=== PATIENT | female | born 1940 ===

== ENCOUNTER 2017-04-21 06:23 | Day surgery (SDC) | payer OTHER ==
[2017-04-21 06:55] VITALS: BMI 25.7
[2017-04-21] MEDS ORDERED: Lactated Ringer's 1,000 ML IV ONE (07:55)
[2017-04-21] MEDS ORDERED: Propofol 10 mg/ml Inj (20 ML) ONE (08:04)
[2017-04-21 10:25] VITALS: TEMP 98; O2SAT 100
[2017-04-21 10:43] VITALS: BP 140/72; PULSE 68; RESP 20
== END 2017-04-21 10:00 | disposition home or self-care (01) ==
LOC: C.ENDO 06:23
PROVIDERS: ATTEND Internal Medicine Gastroenterology
DX: D12.3 Benign neoplasm of transverse colon (principal); D12.2 Benign neoplasm of ascending colon; D12.4 Benign neoplasm of descending colon; K57.90 Diverticulosis of intestine, part unspecified, without perforation or abscess without bleeding; K64.8 Other hemorrhoids
CPT/HCPCS: 45388; 88305; J2704; J7120